=== PATIENT | male | born 1995 | race African-American/Black ===

== ENCOUNTER 2016-11-26 00:13 | Emergency (ER) | payer MEDICAID ==
[~2016-11-26] VITALS: Ht 180.3 cm; Wt 93.0 kg
[~2016-11-26 00:13] MED LIST: ALBUTEROL; PRED-276
[2016-11-26] MEDS ORDERED: IPRATROPIUM BROMIDE (0.02%) 0.5MG/2.5ML NEB HHN STA ×2 (00:43→01:22)
[2016-11-26] MEDS ORDERED: ALBUTEROL (0.083%) 2.5MG/3ML NEB HHN STA ×2 (00:43→01:22)
[2016-11-26] MEDS ORDERED: GUAIFENESIN/CODEINE 200-20MG/10ML UDC PO ONE (00:45)
[2016-11-26 04:30] VITALS: BP 142/78
[2016-11-26] MEDS ORDERED: CLONIDINE 0.1MG TABLET PO PRN (19:45)
[2016-11-26] MEDS ORDERED: MAGNESIUM/ALUMINUM HYDROXIDE/SIMETHICONE 30ML UDC PO PRN (19:45)
[2016-11-26] MEDS ORDERED: IPRATROPIUM/ALBUTEROL 0.5-3(2.5)MG/3ML NEB INH PRN (19:45)
[2016-11-26] MEDS ORDERED: ACETAMINOPHEN 325MG TABLET PO PRN (19:45)
[2016-11-26] MEDS ORDERED: ONDANSETRON HCL 4MG/2ML VIAL IV PRN (19:45)
[2016-11-26 20:28] LABS: CARBON DIOXIDE 27 mEq/L (21-32); CHLORIDE 106 mEq/L (98-107)
[2016-11-26 21:29] LABS: CREATINE KINASE 271 IU/L (39-308); CREATINE KINASE MB FRACTION 1.7 ng/mL (0.5-3.6); TROPONIN I < 0.02 ng/mL (0.00-0.04)
[2016-11-26] MEDS ORDERED: METHYLPREDNISOLONE SOD SUCC 125 MG/2 ML VIAL IV SCH (22:00)
[2016-11-27] MEDS ORDERED: ENOXAPARIN 40MG/0.4ML SYR SUBCUT SCH (09:00)
== END 2016-11-26 04:30 | disposition home or self-care (01) ==
LOC: ER 00:13
DX: J45.901 Unspecified asthma with (acute) exacerbation (principal)
CPT/HCPCS: 36415; 80048; 82550; 82553; 83735; 84484; 94640; 99284; J7611; Z7610; 99285

== ENCOUNTER 2017-01-12 11:34 | Emergency (ER) | payer MEDICAID ==
[~2017-01-12] VITALS: Ht 177.8 cm; Wt 84.0 kg
[2017-01-12] MEDS ORDERED: SODIUM CHLORIDE 0.9% 1,000 ML IV ONE (11:56)
[2017-01-12] MEDS ORDERED: IPRATROPIUM BROMIDE (0.02%) 0.5MG/2.5ML NEB HHN STA (11:56)
[2017-01-12] MEDS ORDERED: ALBUTEROL (0.083%) 2.5MG/3ML NEB HHN STA (11:56)
[2017-01-12] MEDS ORDERED: METHYLPREDNISOLONE SOD SUCC 125 MG/2 ML VIAL IV STA (11:56)
[2017-01-12] MEDS ORDERED: PREDNISONE 20MG TABLET PO ONE (12:45)
[2017-01-12 13:45] VITALS: BP 130/87
== END 2017-01-12 13:48 | disposition home or self-care (01) ==
LOC: ER 11:42
DX: J45.901 Unspecified asthma with (acute) exacerbation (principal); Z76.0 Encounter for issue of repeat prescription; R03.0 Elevated blood-pressure reading, without diagnosis of hypertension
CPT/HCPCS: 71010; 94644; 96361; 96374; 99285; J2930; J7030; J7512; J7611; Z7610

== ENCOUNTER 2017-03-09 19:32 | Emergency (ER) | payer SELFPAY ==
[~2017-03-09] VITALS: Ht 180.3 cm; Wt 82.0 kg
[2017-03-10] MEDS ORDERED: PREDNISONE 20MG TABLET PO STA (00:46)
[2017-03-10] MEDS ORDERED: IPRATROPIUM BROMIDE (0.02%) 0.5MG/2.5ML NEB HHN STA (00:46)
[2017-03-10] MEDS ORDERED: ALBUTEROL (0.083%) 2.5MG/3ML NEB HHN STA (00:46)
[2017-03-10] MEDS ORDERED: AZITHROMYCIN 500 MG TABLET PO STA (00:46)
[2017-03-10] MEDS ORDERED: IPRATROPIUM/ALBUTEROL 0.5-3(2.5)MG/3ML NEB ONE (01:06)
[2017-03-10] MEDS ORDERED: ALBUTEROL (0.5%) 2.5MG/0.5ML NEB HHN ONE (01:06)
[2017-03-10 03:51] VITALS: BP 123/84
== END 2017-03-10 03:54 | disposition home or self-care (01) ==
LOC: ER 22:20
DX: S63.91XA Sprain of unspecified part of right wrist and hand, initial encounter (principal); J45.901 Unspecified asthma with (acute) exacerbation; M25.511 Pain in right shoulder; F17.200 Nicotine dependence, unspecified, uncomplicated; F12.10 Cannabis abuse, uncomplicated; V89.2XXA Person injured in unspecified motor-vehicle accident, traffic, initial encounter; Y93.89 Activity, other specified; Y92.89 Other specified places as the place of occurrence of the external cause; Y99.8 Other external cause status
CPT/HCPCS: 71010; 73130; 94640; 99285; J7512; J7611; Z7610; J7620

== ENCOUNTER 2017-08-23 05:56 | Emergency (ER) | payer MEDICAID ==
[~2017-08-23] VITALS: Ht 182.9 cm; Wt 95.0 kg
[~2017-08-23 05:56] MED LIST changes: +ALBU18HF2 IH; -ALBUTEROL; +FLUT1DIS2 IH; -PRED-276
[2017-08-23] MEDS ORDERED: ALBUTEROL (0.083%) 2.5MG/3ML NEB HHN STA (06:33)
[2017-08-23] MEDS ORDERED: IPRATROPIUM BROMIDE (0.02%) 0.5MG/2.5ML NEB HHN STA (06:33)
[2017-08-23] MEDS ORDERED: METHYLPREDNISOLONE SOD SUCC 125 MG/2 ML VIAL IM STA (06:33)
[2017-08-23 07:38] VITALS: BP 128/80
== END 2017-08-23 08:36 | disposition home or self-care (01) ==
LOC: ER 05:57
DX: J45.901 Unspecified asthma with (acute) exacerbation (principal)
CPT/HCPCS: 71045; 94640; 96372; 99285; J2930; J7611

== ENCOUNTER 2017-09-15 07:24 | Emergency (ER) | payer MEDICAID ==
[~2017-09-15] VITALS: Ht 177.8 cm; Wt 81.0 kg
[2017-09-15] MEDS ORDERED: IPRATROPIUM BROMIDE (0.02%) 0.5MG/2.5ML NEB HHN STA (07:42)
[2017-09-15] MEDS ORDERED: ALBUTEROL (0.083%) 2.5MG/3ML NEB HHN STA (07:42)
[2017-09-15] MEDS ORDERED: METHYLPREDNISOLONE SOD SUCC 125 MG/2 ML VIAL IM STA (07:42)
[2017-09-15] MEDS ORDERED: METHYLPREDNISOLONE SOD SUCC 125 MG/2 ML VIAL IV STA (07:52)
[2017-09-15 11:04] VITALS: BP 124/75
== END 2017-09-15 10:52 | disposition home or self-care (01) ==
LOC: ER 07:44
DX: J45.901 Unspecified asthma with (acute) exacerbation (principal); Z91.19 Patient's noncompliance with other medical treatment and regimen
CPT/HCPCS: 94640; 96374; 99284; J2930; J7611

== ENCOUNTER 2021-01-05 00:19 | Emergency (ER) | payer MEDICAID ==
[~2021-01-05] VITALS: Ht 180.3 cm; Wt 105.2 kg
[~2021-01-05 00:19] MED LIST changes: +ALBU6.7H9 INH; -FLUT1DIS2 IH; +PRED10TA MT
[2021-01-05] MEDS ORDERED: PREDNISONE 20MG TABLET PO STA (01:21)
[2021-01-05] MEDS ORDERED: IPRATROPIUM BROMIDE (0.02%) 0.5MG/2.5ML NEB HHN STA (01:21)
[2021-01-05] MEDS: ALBUTEROL (0.083%) 2.5MG/3ML NEB HHN SCH ×3 (02:20→03:20)
[2021-01-05] MEDS ORDERED: ALBU6.7H9 INH (04:14)
[2021-01-05] MEDS ORDERED: P50 MT (04:14)
[2021-01-05] MEDS ORDERED: AZIT250T12 MT (04:15)
[2021-01-05 04:22] VITALS: BP 138/84
== END 2021-01-05 04:24 | disposition home or self-care (01) ==
LOC: ER 00:19
DX: J45.901 Unspecified asthma with (acute) exacerbation (principal); J18.9 Pneumonia, unspecified organism; Z79.899 Other long term (current) drug therapy
CPT/HCPCS: 71045; 94640; 99285; J7512; Z7610

== ENCOUNTER 2021-03-18 20:34 | Emergency (ER) | payer MEDICAID ==
[~2021-03-18] VITALS: Ht 180.3 cm; Wt 98.0 kg
[~2021-03-18 20:34] MED LIST changes: +AZIT250T12 MT; +P50 MT
[2021-03-18 22:03] VITALS: BP 133/89
[2021-03-18] MEDS ORDERED: METOCLOPRAMIDE HCL 10MG/2ML VIAL IV ONE (22:45)
[2021-03-18] MEDS ORDERED: ACETAMINOPHEN 325MG TABLET PO STA (22:45)
== END 2021-03-19 00:28 | disposition home or self-care (01) ==
LOC: ER 20:34
DX: R51.9 Headache, unspecified (principal); J45.909 Unspecified asthma, uncomplicated
CPT/HCPCS: 96374; 99283; J2765

== ENCOUNTER 2021-04-15 19:07 | Emergency (ER) | payer MEDICAID ==
[~2021-04-15] VITALS: Ht 180.3 cm; Wt 98.0 kg
[2021-04-15] MEDS ORDERED: IPRATROPIUM BROMIDE (0.02%) 0.5MG/2.5ML NEB HHN STA (22:23)
[2021-04-15] MEDS ORDERED: METHYLPREDNISOLONE SOD SUCC 125 MG/2 ML VIAL IM STA (22:23)
[2021-04-15] MEDS ORDERED: ALBUTEROL (0.083%) 2.5MG/3ML NEB HHN STA (22:23)
[2021-04-15] MEDS ORDERED: KETOROLAC 60MG/2ML VIAL IM STA (22:48)
[2021-04-15 23:30] VITALS: BP 133/90
[2021-04-15] MEDS ORDERED: P50 MT (23:48)
[2021-04-15] MEDS ORDERED: ALBU6.7H9 INH (23:48)
== END 2021-04-16 00:55 | disposition home or self-care (01) ==
LOC: ER 19:07
DX: J45.901 Unspecified asthma with (acute) exacerbation (principal)
CPT/HCPCS: 94640; 96372; 99284; J1885; J2930; Z7610

== ENCOUNTER 2021-05-01 12:51 | Emergency (ER) | payer MEDICAID ==
[~2021-05-01] VITALS: Ht 180.3 cm; Wt 98.0 kg
[2021-05-01 12:53] VITALS: BP 138/98
[2021-05-01] MEDS ORDERED: ALBU6.7H9 INH (13:08)
== END 2021-05-01 13:17 | disposition home or self-care (01) ==
LOC: ER 12:51
DX: Z76.0 Encounter for issue of repeat prescription (principal); J45.909 Unspecified asthma, uncomplicated
CPT/HCPCS: 99283

== ENCOUNTER 2021-07-08 15:13 | Emergency (ER) | payer MEDICAID ==
[~2021-07-08] VITALS: Ht 182.9 cm; Wt 95.0 kg
[2021-07-08] MEDS ORDERED: PREDNISONE 20MG TABLET PO STA (15:53)
[2021-07-08] MEDS ORDERED: IPRATROPIUM BROMIDE (0.02%) 0.5MG/2.5ML NEB HHN STA (15:53)
[2021-07-08] MEDS ORDERED: ALBUTEROL (0.083%) 2.5MG/3ML NEB HHN SCH (16:00)
[2021-07-08] MEDS ORDERED: P50 MT (16:32)
[2021-07-08] MEDS ORDERED: ALBU6.7H9 INH (16:32)
[2021-07-08] MEDS ORDERED: ALBUTEROL 6.7GM HFA INHALER ORI ONE (17:30)
[2021-07-08 17:56] VITALS: BP 118/89
== END 2021-07-08 17:58 | disposition home or self-care (01) ==
LOC: ER 15:13
DX: J45.901 Unspecified asthma with (acute) exacerbation (principal)
CPT/HCPCS: 94640; 99283; J7512; Z7610

== ENCOUNTER 2021-10-09 22:19 | Emergency (ER) | payer MEDICAID ==
[~2021-10-09] VITALS: Ht 182.9 cm; Wt 96.0 kg
[2021-10-09] MEDS ORDERED: IPRATROPIUM BROMIDE (0.02%) 0.5MG/2.5ML NEB HHN STA (22:46)
[2021-10-09] MEDS ORDERED: METHYLPREDNISOLONE SOD SUCC 125 MG/2 ML VIAL IV STA (22:50)
[2021-10-09] MEDS ORDERED: MAGNESIUM 2 G PREMIX 50 ML IV ONE (23:00)
[2021-10-09] MEDS ORDERED: ALBUTEROL (0.083%) 2.5MG/3ML NEB HHN SCH (23:00)
[2021-10-10] MEDS ORDERED: ALBU6.7H15 INH (00:39)
[2021-10-10] MEDS ORDERED: P50 MT (00:39)
[2021-10-10] MEDS ORDERED: ALBU2.5V13 NEB (00:39)
[2021-10-10 01:10] VITALS: BP 130/76
== END 2021-10-10 07:52 | disposition home or self-care (01) ==
LOC: ER 22:19
DX: J45.901 Unspecified asthma with (acute) exacerbation (principal); Z98.890 Other specified postprocedural states; Z79.899 Other long term (current) drug therapy
CPT/HCPCS: 94640; 96365; 96375; 99284; J2930; J3475; Z7610

== ENCOUNTER 2021-11-03 01:13 | Emergency (ER) | payer MEDICAID ==
[~2021-11-03] VITALS: Ht 180.3 cm; Wt 95.0 kg
[~2021-11-03 01:13] MED LIST changes: +ALBU2.5V13 NEB; +ALBU6.7H15 INH
[2021-11-03 01:21] VITALS: BP 155/92
[2021-11-03] MEDS ORDERED: ALBUTEROL (0.083%) 2.5MG/3ML NEB HHN ONE (02:15)
[2021-11-03] MEDS ORDERED: PREDNISONE 20MG TABLET PO ONE (02:15)
[2021-11-03] MEDS ORDERED: P50 MT ×3 (02:29→03:27)
[2021-11-03] MEDS ORDERED: ALBU6.7H9 INH ×3 (02:29→03:27)
== END 2021-11-04 03:35 | disposition home or self-care (01) ==
LOC: ER 01:13
DX: J45.901 Unspecified asthma with (acute) exacerbation (principal); Z98.890 Other specified postprocedural states; Z79.899 Other long term (current) drug therapy
CPT/HCPCS: 94640; 99283; Z7610

== ENCOUNTER 2022-04-08 15:52 | Inpatient (IN) | payer MEDICAID ==
[~2022-04-08] VITALS: Ht 180.3 cm; Wt 111.6 kg
[~2022-04-08 15:52] MED LIST changes: +ALBU6.7H3 INH; -ALBU6.7H9 INH
[2022-04-08] MEDS ORDERED: IPRATROPIUM BROMIDE (0.02%) 0.5MG/2.5ML NEB HHN STA (16:05)
[2022-04-08] MEDS ORDERED: ALBUTEROL (0.083%) 2.5MG/3ML NEB HHN STA (16:05)
[2022-04-08] MEDS ORDERED: MAGNESIUM 2 G PREMIX 50 ML IV STA (16:05)
[2022-04-08] MEDS ORDERED: METHYLPREDNISOLONE SOD SUCC 125 MG/2 ML VIAL IV STA (16:05)
[2022-04-08] MEDS ORDERED: SODIUM CHLORIDE 0.9% 1,000 ML IV ONE (16:15)
[2022-04-08 16:34] LABS: BASOPHILS % 0.8 % (0.0-2.0); EOSINOPHILS % 10.4 % (0.0-5.0); HEMATOCRIT. 50.6 % (42.0-52.0); HEMOGLOBIN. 16.9 g/dL (14.0-18.0); LYMPHOCYTES % 32.2 % (20.0-50.0); MEAN CORPUSCULAR HEMOGLOBIN 28.6 pg (28.0-32.0); MEAN CORPUSCULAR VOLUME 85.6 fL (80.0-94.0); MEAN PLATELET VOLUME 9.1 fl (7.4-10.4); MONOCYTES % 8.4 % (2.0-8.0); NEUTROPHILS % 48.2 % (40.0-76.0); PLATELET 250 x1000/uL (130-400); RED BLOOD CELL COUNT 5.91 mill/uL (4.7-6.1); RED CELL DISTRIBUTION WIDTH 14.5 % (11.6-14.6)
[2022-04-08] MEDS ORDERED: AZITHROMYCIN 500MG/250ML 250 ML IV ONE (17:00)
[2022-04-08] MEDS ORDERED: CEFTRIAXONE 1 G PREMIX 50 ML IV ONE (17:00)
[2022-04-08] MEDS ORDERED: SODIUM CHLORIDE 0.9% 1000ML BAG (SEPSIS BOLUS) IV ONE (17:00)
[2022-04-08 18:26] LABS: CHLORIDE 106 mEq/L (98-107)
[2022-04-08 20:00] VITALS: BP 148/91
[2022-04-08 20:11] VITALS: BP 148/91
[2022-04-08] MEDS ORDERED: NITROGLYCERIN 0.4MG TABLET SL SL PRN (20:15)
[2022-04-08] MEDS ORDERED: DOCUSATE SODIUM 100MG CAPSULE PO PRN (20:15)
[2022-04-08] MEDS ORDERED: NA PHOS,M-B/NA PHOS,DI-BA ENEMA 118ML PR PRN (20:15)
[2022-04-08] MEDS ORDERED: GUAIFENESIN 200MG/10ML SUGAR FREE UDC PO PRN (20:15)
[2022-04-08] MEDS ORDERED: MAGNESIUM/ALUMINUM HYDROXIDE/SIMETHICONE 30ML UDC PO PRN (20:15)
[2022-04-08] MEDS ORDERED: ONDANSETRON HCL 4MG/2ML INJ IV PRN (20:15)
[2022-04-08] MEDS ORDERED: ACETAMINOPHEN 325MG TABLET PO PRN (20:15)
[2022-04-08] MEDS ORDERED: IPRATROPIUM/ALBUTEROL 0.5-3(2.5)MG/3ML NEB NEB PRN (20:15)
[2022-04-08] MEDS ORDERED: CLONIDINE 0.1MG TABLET PO PRN (20:15)
[2022-04-08 20:54] LABS: T4 FREE 0.96 ng/dL (0.76-1.46)
[2022-04-08] MEDS ORDERED: ZOLPIDEM TARTRATE 5MG TABLET PO PRN (21:00)
[2022-04-08] MEDS: ASCORBIC ACID 500 MG TABLET PO SCH (22:46)
[2022-04-08] MEDS: FAMOTIDINE 20MG TABLET PO SCH (22:46)
[2022-04-08] MEDS: METHYLPREDNISOLONE SOD SUCC 125 MG/2 ML VIAL IV SCH (22:47)
[2022-04-08] MEDS: GUAIFENESIN/DM 600MG/30MG ER TAB 12HR PO SCH (22:51)
[2022-04-08] MEDS ORDERED: INFLUENZA VACCINE 05/PF 0.5 ML SYRINGE IM ONE (23:15)
[2022-04-08] MEDS ORDERED: PNEUMOCOCCAL 23-VAL P-SAC VAC 0.5 ML IM ONE (23:15)
[2022-04-08 23:58] LABS: CREATINE KINASE MB FRACTION 4.7 ng/mL (0.5-3.6)
[2022-04-09] VITALS: BP 156/87
[2022-04-09] MEDS: IPRATROPIUM/ALBUTEROL 0.5-3(2.5)MG/3ML NEB HHN SCH ×6 (01:18→20:58)
[2022-04-09 04:00] VITALS: BP 143/77
[2022-04-09] MEDS: SODIUM CHLORIDE 0.9% 1,000 ML IV SCH ×2 (04:26→17:13)
[2022-04-09] MEDS: METHYLPREDNISOLONE SOD SUCC 125 MG/2 ML VIAL IV SCH ×3 (06:09→23:16)
[2022-04-09 07:21] LABS: HEMATOCRIT. 47.1 % (42.0-52.0); HEMOGLOBIN. 15.8 g/dL (14.0-18.0); MEAN CORPUSCULAR HEMOGLOBIN 28.7 pg (28.0-32.0); MEAN CORPUSCULAR VOLUME 85.6 fL (80.0-94.0); MEAN PLATELET VOLUME 9.9 fl (7.4-10.4); PLATELET 225 x1000/uL (130-400); RED BLOOD CELL COUNT 5.51 mill/uL (4.7-6.1); RED CELL DISTRIBUTION WIDTH 14.3 % (11.6-14.6)
[2022-04-09 07:44] LABS: CHLORIDE 106 mEq/L (98-107)
[2022-04-09 07:56] LABS: CREATINE KINASE 403 IU/L (39-308); CREATINE KINASE MB FRACTION 5.1 ng/mL (0.5-3.6); PHOSPHORUS 1.4 mg/dL (2.5-4.9)
[2022-04-09 08:01] VITALS: BP 139/79
[2022-04-09] MEDS: ASCORBIC ACID 500 MG TABLET PO SCH ×2 (09:08→23:15)
[2022-04-09] MEDS: ZINC SULFATE 220 MG ( 50 ) CAPSULE PO SCH (09:08)
[2022-04-09] MEDS: FAMOTIDINE 20MG TABLET PO SCH ×2 (09:08→23:15)
[2022-04-09] MEDS: GUAIFENESIN/DM 600MG/30MG ER TAB 12HR PO SCH ×2 (09:08→17:13)
[2022-04-09 10:58] LABS: PLATELET ESTIMATE NORMAL
[2022-04-09 12:00] VITALS: BP 152/75
[2022-04-09] MEDS: AZITHROMYCIN 500 MG in DEXT 5% WATER 250 ML IV SCH (13:54)
[2022-04-09] MEDS ORDERED: AZITHROMYCIN 500 MG in DEXT 5% WATER 250 ML IV SCH (15:00)
[2022-04-09 16:00] VITALS: BP 139/78
[2022-04-09] MEDS ORDERED: CEFTRIAXONE 1 G PREMIX 50 ML IV SCH (16:00)
[2022-04-09] MEDS ORDERED: ALBU6.7H3 INH (16:32)
[2022-04-09] MEDS ORDERED: MED4 MT (16:32)
[2022-04-09] MEDS ORDERED: MOME13HF3 INH (16:32)
[2022-04-09] MEDS: CEFTRIAXONE 1,000 MG in DEXTROSE 5% WATER 50 ML IV SCH (17:13)
[2022-04-09 20:00] VITALS: BP 150/83
[2022-04-10] VITALS: BP 138/96
[2022-04-10] MEDS: IPRATROPIUM/ALBUTEROL 0.5-3(2.5)MG/3ML NEB HHN SCH ×6 (00:53→21:24)
[2022-04-10 04:00] VITALS: BP 138/73
[2022-04-10] MEDS: METHYLPREDNISOLONE SOD SUCC 125 MG/2 ML VIAL IV SCH ×3 (06:31→21:08)
[2022-04-10] MEDS: SODIUM CHLORIDE 0.9% 1,000 ML IV SCH ×2 (06:32→21:07)
[2022-04-10 07:20] LABS: HEMATOCRIT 45.3 % (42.0-52.0); HEMOGLOBIN 15.1 g/dL (14.0-18.0); MEAN CORPUSCULAR HEMOGLOBIN 28.5 pg (28.0-32.0); MEAN CORPUSCULAR VOLUME 85.2 fL (80.0-94.0); PLATELET 226 x1000/uL (130-400); RED BLOOD CELL COUNT 5.31 mill/uL (4.7-6.1); RED CELL DISTRIBUTION WIDTH 14.5 % (11.6-14.6)
[2022-04-10 08:12] LABS: CHLORIDE 106 mEq/L (98-107)
[2022-04-10] MEDS: GUAIFENESIN/DM 600MG/30MG ER TAB 12HR PO SCH ×2 (08:16→21:08)
[2022-04-10] MEDS: ZINC SULFATE 220 MG ( 50 ) CAPSULE PO SCH (08:16)
[2022-04-10] MEDS: FAMOTIDINE 20MG TABLET PO SCH ×2 (08:16→21:08)
[2022-04-10] MEDS: ASCORBIC ACID 500 MG TABLET PO SCH ×2 (08:17→21:08)
[2022-04-10 08:25] VITALS: BP 160/91
[2022-04-10 08:50] LABS: PHOSPHORUS 3.9 mg/dL (2.5-4.9)
[2022-04-10 11:37] VITALS: BP 152/83
[2022-04-10] MEDS: KETOROLAC 15MG/ML VIAL IV PRN ×2 (12:58→21:37)
[2022-04-10] MEDS: AZITHROMYCIN 500 MG in DEXT 5% WATER 250 ML IV SCH (13:03)
[2022-04-10] MEDS: CEFTRIAXONE 1,000 MG in DEXTROSE 5% WATER 50 ML IV SCH (16:08)
[2022-04-10 16:09] VITALS: BP 156/75
[2022-04-10 20:00] VITALS: BP 139/80
[2022-04-11 00:06] VITALS: BP 147/84
[2022-04-11] MEDS: IPRATROPIUM/ALBUTEROL 0.5-3(2.5)MG/3ML NEB HHN SCH ×3 (00:47→09:16)
[2022-04-11 04:00] VITALS: BP 135/77
[2022-04-11] MEDS: METHYLPREDNISOLONE SOD SUCC 125 MG/2 ML VIAL IV SCH (05:44)
[2022-04-11 06:01] VITALS: BP 150/88
[2022-04-11 06:59] LABS: HEMATOCRIT 44.3 % (42.0-52.0); HEMOGLOBIN 14.7 g/dL (14.0-18.0); MEAN CORPUSCULAR HEMOGLOBIN 28.7 pg (28.0-32.0); MEAN CORPUSCULAR VOLUME 86.6 fL (80.0-94.0); PLATELET 212 x1000/uL (130-400); RED BLOOD CELL COUNT 5.12 mill/uL (4.7-6.1); RED CELL DISTRIBUTION WIDTH 14.6 % (11.6-14.6)
[2022-04-11 07:47] LABS: CHLORIDE 108 mEq/L (98-107); PHOSPHORUS 3.1 mg/dL (2.5-4.9)
[2022-04-11 08:00] VITALS: BP 154/97
[2022-04-11] MEDS ORDERED: FLUT100D INH (08:32)
[2022-04-11] MEDS ORDERED: P20 MT (08:32)
[2022-04-11] MEDS ORDERED: ALBU18HF2 IH (08:32)
[2022-04-11] MEDS: ASCORBIC ACID 500 MG TABLET PO SCH (09:34)
[2022-04-11] MEDS: GUAIFENESIN/DM 600MG/30MG ER TAB 12HR PO SCH (09:34)
[2022-04-11] MEDS: ZINC SULFATE 220 MG ( 50 ) CAPSULE PO SCH (09:34)
[2022-04-11] MEDS: FAMOTIDINE 20MG TABLET PO SCH (09:34)
[2022-04-11] MEDS: SODIUM CHLORIDE 0.9% 1,000 ML IV SCH (09:36)
[2022-04-11] MEDS: KETOROLAC 15MG/ML VIAL IV PRN (09:41)
[2022-04-11 10:00] VITALS: BP 160/98
[2022-04-11 10:37] VITALS: BP 163/74
== END 2022-04-11 13:30 | disposition home or self-care (01) | DRG 720 ==
LOC: ER 15:58 → 3WST 17:35 → EDBEDREQTM 17:38 → EDBEDREQ 17:38 → ENRESERV 19:15
PROVIDERS: ADMIT Internal Medicine; ATTEND Internal Medicine
DX: A41.9 Sepsis, unspecified organism (principal); J96.01 Acute respiratory failure with hypoxia; J18.9 Pneumonia, unspecified organism; J45.901 Unspecified asthma with (acute) exacerbation; R65.20 Severe sepsis without septic shock; R79.89 Other specified abnormal findings of blood chemistry; R91.8 Other nonspecific abnormal finding of lung field; F17.210 Nicotine dependence, cigarettes, uncomplicated; Z20.822 Contact with and (suspected) exposure to COVID-19; Z79.899 Other long term (current) drug therapy; Z88.8 Allergy status to other drugs, medicaments and biological substances; Z79.51 Long term (current) use of inhaled steroids; Z28.310 Unvaccinated for COVID-19; Z82.5 Family history of asthma and other chronic lower respiratory diseases
CPT/HCPCS: 36415; 71045; 80048; 80053; 82550; 82553; 83036; 83605; 83735; 83880; 84100; 84439; 84443; 84484; 85025; 85027; 87426; 90686; 90732; 93005; 93970; 94640; 99291; A4565; C9803; J0456; J0696; J1885; J2930; J3475; J7030; J7060

== ENCOUNTER 2022-06-26 17:31 | Emergency (ER) | payer MEDICAID ==
[~2022-06-26] VITALS: Ht 180.3 cm; Wt 102.0 kg
[~2022-06-26 17:31] MED LIST changes: -ALBU2.5V13 NEB; -ALBU6.7H15 INH; -AZIT250T12 MT; +FLUT100D INH; +MED4 MT; +MOME13HF3 INH; +P20 MT; -P50 MT; -PRED10TA MT
[2022-06-26 17:37] VITALS: BP 144/99
[2022-06-26] MEDS ORDERED: ALBUTEROL (0.083%) 2.5MG/3ML NEB HHN STA (18:30)
[2022-06-26] MEDS ORDERED: PREDNISONE 20MG TABLET PO STA (18:30)
[2022-06-26] MEDS ORDERED: IPRATROPIUM BROMIDE (0.02%) 0.5MG/2.5ML NEB HHN STA (18:30)
[2022-06-26] MEDS ORDERED: ALBU6.7H3 INH (19:52)
[2022-06-26] MEDS ORDERED: P20 MT (19:52)
[2022-06-26] MEDS ORDERED: ACET-2708 MT (19:52)
[2022-06-26] MEDS ORDERED: ALBU05 NEB (19:52)
[2022-06-26] MEDS ORDERED: ACETAMINOPHEN 325MG TABLET PO ONE (20:00)
== END 2022-06-26 20:00 | disposition home or self-care (01) ==
LOC: ER 17:31
DX: B34.9 Viral infection, unspecified (principal); J45.901 Unspecified asthma with (acute) exacerbation; Z79.899 Other long term (current) drug therapy; Z20.822 Contact with and (suspected) exposure to COVID-19
CPT/HCPCS: 71045; 87426; 94640; 99284; C9803; J7512; Z7610